=== PATIENT | female | born 1935 | race Native Hawaiian/Other Pacific Islander ===

== ENCOUNTER 2017-01-01 10:04 | Outpatient (CLI) | payer OTHER ==
[~2017-01-01 10:04] MED LIST: ASA LOW STR81 MG PO; CLONIDINE0.2 MG PO; DIOVAN HC1 PO; LIPITOR10 MG PO
== END 2017-01-01 19:02 | disposition home or self-care (01) ==
LOC: LABW 10:04
DX: B35.1 Tinea unguium (principal)
CPT/HCPCS: 36415; 84450; 84460

== ENCOUNTER 2021-09-27 14:21 | Emergency (ER) | payer OTHER ==
[~2021-09-27] VITALS: Ht 167.6 cm; Wt 82.1 kg
[2021-09-27 14:21] VITALS: BP 147/77; TEMP 98
[2021-09-27 14:51] LABS: PLATELET COUNT 227 K/uL (152-353)
[2021-09-27 14:55] LABS: POTASSIUM 4.8 mmol/L (3.6-5.2); SODIUM 139 mmol/L (136-145)
[2021-09-28] MEDS ORDERED: AMLODIPINE BESYLATE PO (08:30)
[2021-09-28] MEDS ORDERED: FUROSEMIDE20 MG PO (08:31)
[2021-09-28] MEDS ORDERED: DONEPEZIL HYDROC5 MG PO (08:31)
[2021-09-28] MEDS ORDERED: LINZESS290 MCG PO (08:33)
[2021-09-28] MEDS ORDERED: COZAAR100 MG PO (08:33)
[2021-09-28] MEDS ORDERED: METO-837 PO (08:34)
[2021-09-28] MEDS ORDERED: VENLAFAXINE H37.5 M3 PO (08:35)
[2021-09-28] MEDS ORDERED: NAMENDA XR28 MG PO (08:35)
[2021-09-28] MEDS ORDERED: DOCU100C10 PO (08:36)
[2021-09-28] MEDS ORDERED: APLISOL5 UNIT/0.1 ID (08:37)
[2021-09-28] MEDS ORDERED: OLANZAPINE5 M1 PO ×2 (08:40→08:41)
[2021-10-02] MEDS ORDERED: DOCU100C10 PO (11:23)
[2021-10-02] MEDS ORDERED: ATOR20TA2 PO (11:23)
[2021-10-02] MEDS ORDERED: AMLODIPINE BESYLATE PO (11:23)
[2021-10-02] MEDS ORDERED: ENTERIC COATED325 MG PO (11:23)
[2021-10-02] MEDS ORDERED: FURO20TA67 PO (11:24)
[2021-10-02] MEDS ORDERED: LOSA50TA PO (11:24)
[2021-10-02] MEDS ORDERED: DONE5TAB PO (11:24)
[2021-10-02] MEDS ORDERED: OLAN2.5T2 PO (11:25)
[2021-10-02] MEDS ORDERED: MEMA10TA2 PO (11:25)
[2021-10-02] MEDS ORDERED: METO-837 PO (11:25)
[2021-10-02] MEDS ORDERED: OLANZAPINE5 MG PO (11:26)
== END 2021-09-27 16:00 | disposition still patient (30) ==
LOC: ED 14:21
PROVIDERS: Emergency Medicine
DX: F03.91 Unspecified dementia, unspecified severity, with behavioral disturbance (principal); E86.0 Dehydration; Z11.52 Encounter for screening for COVID-19; Z04.6 Encounter for general psychiatric examination, requested by authority
CPT/HCPCS: 80053; 85027; 87635; 93005; 99283; U0003

== ENCOUNTER 2021-09-28 05:00 | Emergency (ER) | payer OTHER ==
[~2021-09-28] VITALS: Ht 167.6 cm; Wt 81.6 kg
[2021-09-28 05:00] VITALS: TEMP 97.9
[2021-09-28 06:33] LABS: PLATELET COUNT 216 K/uL (152-353)
[2021-09-28 06:41] LABS: POTASSIUM 4.1 mmol/L (3.6-5.2)
[2021-09-28 07:56] VITALS: BP 155/60
[2021-09-28] MEDS ORDERED: AMLODIPINE BESYLATE PO (08:30)
[2021-09-28] MEDS ORDERED: FUROSEMIDE20 MG PO (08:31)
[2021-09-28] MEDS ORDERED: DONEPEZIL HYDROC5 MG PO (08:31)
[2021-09-28] MEDS ORDERED: COZAAR100 MG PO (08:33)
[2021-09-28] MEDS ORDERED: LINZESS290 MCG PO (08:33)
[2021-09-28] MEDS ORDERED: METO-837 PO (08:34)
[2021-09-28] MEDS ORDERED: NAMENDA XR28 MG PO (08:35)
[2021-09-28] MEDS ORDERED: VENLAFAXINE H37.5 M3 PO (08:35)
[2021-09-28] MEDS ORDERED: DOCU100C10 PO (08:36)
[2021-09-28] MEDS ORDERED: APLISOL5 UNIT/0.1 ID (08:37)
[2021-09-28] MEDS ORDERED: OLANZAPINE5 M1 PO ×2 (08:40→08:41)
[2021-10-02] MEDS ORDERED: DOCU100C10 PO (11:23)
[2021-10-02] MEDS ORDERED: ATOR20TA2 PO (11:23)
[2021-10-02] MEDS ORDERED: AMLODIPINE BESYLATE PO (11:23)
[2021-10-02] MEDS ORDERED: ENTERIC COATED325 MG PO (11:23)
[2021-10-02] MEDS ORDERED: LOSA50TA PO (11:24)
[2021-10-02] MEDS ORDERED: FURO20TA67 PO (11:24)
[2021-10-02] MEDS ORDERED: DONE5TAB PO (11:24)
[2021-10-02] MEDS ORDERED: METO-837 PO (11:25)
[2021-10-02] MEDS ORDERED: MEMA10TA2 PO (11:25)
[2021-10-02] MEDS ORDERED: OLAN2.5T2 PO (11:25)
[2021-10-02] MEDS ORDERED: OLANZAPINE5 MG PO (11:26)
== END 2021-09-28 07:56 | disposition still patient (30) ==
LOC: ED 05:00
PROVIDERS: Emergency Medicine
PROC: 0HQ1XZZ Repair Face Skin, External Approach (ICD-10-PCS; principal; 2021-09-28)
DX: S01.122A Laceration with foreign body of left eyelid and periocular area, initial encounter (principal); S01.82XA Laceration with foreign body of other part of head, initial encounter; W07.XXXA Fall from chair, initial encounter; Y92.238 Other place in hospital as the place of occurrence of the external cause; Z20.822 Contact with and (suspected) exposure to COVID-19; Z79.899 Other long term (current) drug therapy; Z51.81 Encounter for therapeutic drug level monitoring
CPT/HCPCS: 80053; 84484; 85027; 85610; 87635; 93005; 99285; U0003